=== PATIENT | male | born 1955 | race Caucasian/White ===

== ENCOUNTER → 2024-10-01 08:31 | Outpatient (REF) | payer MEDICARE, SELFPAY | LOC: HWRAD 08:31 | PROVIDERS: ATTENDING PHYSICIAN Family Medicine | DX: I25.10 Atherosclerotic heart disease of native coronary artery without angina pectoris (principal); R93.1 Abnormal findings on diagnostic imaging of heart and coronary circulation | CPT/HCPCS: 75571 ==